=== PATIENT | male | born 1960 | race Caucasian/White ===

== ENCOUNTER 2016-08-20 07:25 | Day surgery (SDC) | payer OTHER ==
[~2016-08-20] VITALS: Ht 177.8 cm; Wt 105.0 kg
[~2016-08-20 07:25] MED LIST: ASPI-973 PO; CALC500T9 PO; LACT1CAP65 PO; METF500T4 PO; OMEP40CA36 PO; SILD100T PO; SIMV10TA4 PO; Sodium Chloride LOK Flush 10 mL Syringe IV PRN; fentaNYL-PF 50 mCg/mL 2 mL Inj IVPUSH PRN
[2016-08-20 07:43] VITALS: BP 135/89; PULSE 64; RESP 16; O2SAT 95
[2016-08-20] MEDS: 0.9% Sodium Chloride 1,000 ML IV PRN ×2 (07:52→08:17)
[2016-08-20 08:22] VITALS: BP 102/79; PULSE 81; RESP 14; O2SAT 93
[2016-08-20 08:41] VITALS: BP 107/77; PULSE 76; RESP 14; O2SAT 96
[2016-08-20 08:52] VITALS: BP 114/85; PULSE 74; RESP 14; O2SAT 96
--- NOTE | 2016-08-20 10:48 | ENDO ---
[address] [address] ENDOSCOPY PROCEDURE PATIENT: JESSE ANAND : 1960 MR#: [id number] ADMIT: 08/20/2016 JOB ID: [id number] DATE OF SERVICE: 08/20/2016 PRIMARY PROVIDER: Broderick Horowitz DO. PROCEDURE: Esophagogastroduodenoscopy. INDICATIONS: A 55-year-old male with refractory reflux type symptoms in spite of taking b.i.d. omeprazole 40 mg. EQUIPMENT: GIF-H180. SEDATION: 1. Versed 6 mg. 2. Fentanyl 125 mcg. COMPLICATIONS: None identified. PROCEDURE INFORMATION: After the risks and benefits were explained, written and verbal informed consent was obtained. The patient was brought into the endoscopy suite and placed into the left lateral decubitus position. Sedation was achieved using the above-stated medications with the addition of oxygen via nasal cannula. The scope was introduced into the mouth through the bite block, and advanced under direct visualization to cecum as identified by the appendiceal orifice and ileocecal valve. The scope was slowly withdrawn to carefully examine the mucosa for any defects or lesions. Retroflexed views were accomplished in the stomach. The stomach was decompressed. The scope removed from the patient who tolerated the procedure well. FINDINGS: 1. The esophagus: The squamocolumnar junction correlated with the top of the gastric folds. The GEJ was at about 38 cm from the incisors. No acute erosive changes. No strictures. No mass lesions. A small sliding hiatal hernia present. 2. Stomach: The patient had a moderate amount of retained food debris throughout the gastric body. Retroflexed views confirmed the presence of hiatal hernia. I did not see any ulcers or outlet obstruction. There was a small nodule at the level of the pyloric channel. This was biopsied for histopathology. 3. Duodenum: No mucosal pathology identified from the bulb through to the second portion. ENDOSCOPIC DIAGNOSES: 1. Hiatal hernia. 2. Retained gastric food debris. 3. Pyloric nodule. RECOMMENDATIONS: 1. Await histopathology. 2. Immediately alter lifestyle, so that there is no significant or large volume of food being consumed shortly before bedtime. I suspect in the context of hiatal hernia this to be contributing greatly to his reflux symptoms. 3. Additionally, he is encouraged to ensure that he takes his proton pump inhibitor a good 30 minutes before any given meal in the morning or in the evening. 4. If this does not control his symptoms, then I would be inclined to try switching him out for pantoprazole 40 mg twice per day and if that does not help, then we can pursue 24-hour pH testing for further evaluation.
--- NOTE | 2016-08-21 13:10 | PATH ---
SURGICAL PATHOLOGY Attending Physician:Presley Hebert CASE STATUS: Signed Out PATIENT NAME: JESSE ANAND PID: [id number] : 1960 DATE COLLECTED:08/20/2016 16:15 SPECIMEN: Stomach, Biopsy CLINICAL HISTORY: 1). PYLORUS BIOPSY FINAL DIAGNOSIS: 1.PYLORUS BIOPSY: DIFFUSE MILD CHRONIC GASTRITIS INVOLVING PYLORIC MUCOSA. Immunohistochemistry for Helicobacter pending, to be reported by addendum. Negative for intestinal metaplasia. Negative for dysplasia and malignancy. ICD10 code K29.70 GROSS DESCRIPTION: The specimen is received in one formalin filled container labeled with the patient's name, sublabeled "pylorus" and consists of a 0.3 x 0.2 x 0.2 CM portion of tissue which is entirely submitted in one cassette. 08/20/2016 DAC MICRO DESCRIPTION: See diagnosis. ICD-9 CODES: CPT CODES: 1: 55153, 11037 PROCEDURE/ADDENDA: Immunohistochemistry SPI Interpretation {Not Entered} Results-Comments Immunohistochemistry Results: Pylorus Biopsy: Negative for Helicobacter pylori by immunohistochemistry. This test was developed and its performance characteristics determined by [facility]. It has not been cleared or approved by the [place]. Food and Drug Administration. The FDA has determined that such clearance or approval is not necessary. This test is used for clinical purposes. It should not be regarded as investigational or for research. Electronically Signed Out Rudy Walters MD Electronically Signed Out Rudy Walters MD [facility] [address], [place] [address] Technical component performed at [facility], [address], [place], [address]
== END 2016-08-20 23:59 | disposition home or self-care (01) ==
LOC: END 07:25
PROVIDERS: ATTEND Internal Medicine Gastroenterology
DX: K29.50 Unspecified chronic gastritis without bleeding (principal); K44.9 Diaphragmatic hernia without obstruction or gangrene; K21.9 Gastro-esophageal reflux disease without esophagitis; E11.9 Type 2 diabetes mellitus without complications; Z79.82 Long term (current) use of aspirin; Z79.84 Long term (current) use of oral hypoglycemic drugs
CPT/HCPCS: 43239; 88305; 88342; G0500; J2250; J3010; J7030